=== PATIENT | female | born 1965 | race Caucasian/White ===

== ENCOUNTER 2016-08-16 05:58 | Day surgery (SDC) | payer OTHER, BC ==
[~2016-08-16 05:58] MED LIST: IV START KIT ONE; LACTATED RINGERS 1,000 ML ONE
[2016-08-16] MEDS ORDERED: FENTANYL 250 MCG/5 ML AMP IV PRN (07:03)
[2016-08-16] MEDS ORDERED: MIDAZOLAM HCL 5 MG/5 ML VIAL IV PRN (07:03)
[2016-08-16] MEDS ORDERED: LACTATED RINGERS 1,000 ML IV SCH (07:15)
[2016-08-16] MEDS ORDERED: PROPOFOL 60 ML IV ONE (09:46)
== END 2016-08-16 08:25 | disposition home or self-care (01) ==
LOC: SDC 05:58
PROVIDERS: ATTEND Family Medicine
PROC: 0DJD8ZZ Inspection of Lower Intestinal Tract, Via Natural or Artificial Opening Endoscopic (ICD-10-PCS; principal; 2016-08-16)
DX: Z12.11 Encounter for screening for malignant neoplasm of colon (principal); K57.30 Diverticulosis of large intestine without perforation or abscess without bleeding; K64.8 Other hemorrhoids; R10.12 Left upper quadrant pain
CPT/HCPCS: 45378; J7120